=== PATIENT | female | born 1995 | race Caucasian/White ===

== ENCOUNTER 2022-03-04 14:32 | Emergency (ER) | payer BC ==
[2022-03-04] MEDS ORDERED: diphenhydrAMINE 25 MG CAP ONE (14:47)
[2022-03-04] MEDS ORDERED: Lorazepam 0.5 MG TAB ONE (15:15)
== END 2022-03-04 15:23 | disposition home or self-care (01) ==
LOC: BURERS 14:32
DX: L02.411 Cutaneous abscess of right axilla (principal); F41.9 Anxiety disorder, unspecified
CPT/HCPCS: 99282